=== PATIENT | female | born 1990 | race Caucasian/White ===

== ENCOUNTER 2016-04-18 20:26 | Emergency (ER) | payer SELFPAY ==
[2016-04-18 20:47] VITALS: BP 138/79
[2016-04-18] MEDS ORDERED: ONDANSETRON 4 MG TAB.RAPDIS PO ONE (21:37)
--- NOTE | 2016-04-18 21:38 | ER Document Report ---
ED Medical Screen (RME) - General Chief Complaint: Fever Stated Complaint: FEVER Notes: Patient states she was seen at [facility] in [place] today and diagnosed with the flu type A. Patient continues to have nausea and vomiting, no diarrhea does have cough and congestion. States she had a seizure today. Mom has a history of epilepsy but states she has not had a seizure in 7 yrs. Is not on medications currently procedures. Fever today was 104 after being released by [facility]. Patient is feeling weak and dehydrated. Patient was not given any Zofran, or Tamiflu because of the illness being longer than 48 hours. Was prescribed Flonase, Claritin, and Tessalon Perles for cough. I have greeted and performed a rapid initial assessment of this patient. A comprehensive ED assessment and evaluation of the patient, analysis of test results and completion of the medical decision making process will be conducted by additional ED providers. Physical Exam - Vital signs Vitals: Temp Pulse Resp BP Pulse Ox 98.6 F 109 H 20 138/79 H 100 04/18/16 20:45 04/18/16 20:45 04/18/16 20:45 04/18/16 20:45 04/18/16 20:45 - Respiratory Respiratory status: No respiratory distress Breath sounds: Decreased air movement, Productive cough. No: Wheezing Course - Vital Signs Vital signs: Temp Pulse Resp BP Pulse Ox 98.6 F 109 H 20 138/79 H 100 04/18/16 20:45 04/18/16 20:45 04/18/16 20:45 04/18/16 20:45 04/18/16 20:45
== END 2016-04-19 00:20 | disposition left against medical advice (07) ==
LOC: ER 20:26
DX: J11.1 Influenza due to unidentified influenza virus with other respiratory manifestations (principal); R50.9 Fever, unspecified; R11.2 Nausea with vomiting, unspecified; R05 Cough; R56.9 Unspecified convulsions; R53.1 Weakness; Z82.0 Family history of epilepsy and other diseases of the nervous system; Z53.20 Procedure and treatment not carried out because of patient's decision for unspecified reasons
CPT/HCPCS: 99281; S0119